=== PATIENT | female | born 1975 | race Caucasian/White ===

== ENCOUNTER → 2016-12-10 | Outpatient (CLI) | payer OTHER ==
[~2016-12-10] MED LIST: ANAPROX DS550 MG PO; BACTRIM DS 8001 TA1 PO; BCP; BUSPIRONE HCL10 MG PO; CLARITIN-D 12 H1 TAB PO; DULCOLAX5 MG; IBU800 MG; METFORMIN500 MG PO; MOTRIN800 MG PO; MYLICON, MYLANT80 MG PO; NORTREL 7/7/71 TAB PO; PERCOCET 325 MG1 TA7 PO; PROZAC10 MG PO; PYRIDIUM200 MG PO; TRAMADOL HCL50 MG PO; ZITHROMAX250 MG PO
[2016-12-10 05:39] LABS: ALBUMIN 3.3 gm/dl (3.1-4.5); ALKALINE PHOSPHATASE 59 U/L (45-117); BILIRUBIN, DIRECT < 0.1 mg/dL (0.0-0.2); BILIRUBIN, TOTAL 0.3 mg/dl (0.2-1.0); BUN 9 mg/dl (7-24); CARBON DIOXIDE 33 mmol/L (21-32); CHLORIDE 103 mmol/L (98-107); CHOLESTEROL 147 mg/dL (<200); EST GLOM FILT AFRICAN AMERICAN > 60 ml/min; FREE T4 0.96 ng/dl (0.76-1.46); GLUCOSE 89 mg/dL (65-99); HDL CHOLESTEROL 69 mg/dl (40-60); LDL CHOLESTEROL 65 mg/dL (9-159); SGOT/AST 8 IU/L (3-35); SGPT/ALT 14 U/L (12-78); SODIUM 141 mmol/L (136-145); TOTAL PROTEIN 6.9 gm/dL (6.4-8.2); TRIGLYCERIDES 66 mg/dl (<150); VLDL CHOLESTEROL 13 mg/dL (6-40)
[2016-12-10 05:55] LABS: BASO % 0.6 % (0.0-1.0); EOS # 0.4 10*3/uL (0.0-0.4); EOS % 5.9 % (1.0-4.0); HEMATOCRIT 41.9 % (37.0-47.0); HEMOGLOBIN 13.3 g/dl (12.0-16.0); LYMPH % 29.7 % (27.0-41.0); MEAN CELL VOLUME 88.6 fl (81.0-99.0); MEAN CORPUSCULAR HGB 28.1 pg (27.0-31.0); MEAN CORPUSCULAR HGB CONC 31.7 g/dl (33.0-37.0); MEAN PLATELET VOLUME 9.8 fl (9.6-12.3); MONO # 0.6 10*3/uL (0.1-1.0); MONO % 8.1 % (3.0-9.0); NEUT # 3.8 10*3/uL (2.3-7.9); NEUT % 55.6 % (47.0-73.0); PLATELET COUNT AUTOMATED 240 10*3/uL (130-400); RED BLOOD COUNT 4.73 10*6/uL (4.10-5.10); RED CELL DISTRI WIDTH 13.2 % (0-14.5); WHITE BLOOD COUNT 6.8 10*3/uL (4.8-10.8)
[2016-12-10 06:41] LABS: HEMOGLOBIN A1c 5.7 % (4.8-5.6)
[2016-12-10 07:15] LABS: VITAMIN D, 25-HYDROXY 16.5 ng/mL (30-100)
== END ==
LOC: LAB 04:21
PROVIDERS: Nurse Practitioner Family
DX: E03.9 Hypothyroidism, unspecified (principal); E55.9 Vitamin D deficiency, unspecified; E04.9 Nontoxic goiter, unspecified; E66.9 Obesity, unspecified; R53.83 Other fatigue; R73.02 Impaired glucose tolerance (oral)

== ENCOUNTER → 2017-08-27 | Outpatient (CLI) | payer OTHER ==
[2017-08-27 07:06] LABS: ALBUMIN 3.3 gm/dl (3.1-4.5); BUN 12 mg/dl (7-24); CHLORIDE 103 mmol/L (98-107); CREATININE 0.87 mg/dL (0.55-1.02); FREE T4 1.03 ng/dl (0.76-1.46); POTASSIUM 4.3 mmol/L (3.5-5.1); SODIUM 139 mmol/L (136-145)
== END | disposition home or self-care (01) ==
LOC: LAB 05:54
PROVIDERS: Internal Medicine
DX: E03.9 Hypothyroidism, unspecified (principal); E28.2 Polycystic ovarian syndrome; E55.9 Vitamin D deficiency, unspecified

== ENCOUNTER → 2017-12-08 | Outpatient (CLI) | payer OTHER ==
[2017-12-08 05:47] LABS: ALKALINE PHOSPHATASE 66 U/L (45-117); BUN 6 mg/dl (7-24); CHLORIDE 105 mmol/L (98-107); CHOLESTEROL 166 mg/dL (<200); CREATININE 0.82 mg/dL (0.55-1.02); HDL CHOLESTEROL 65 mg/dl (40-60); LDL CHOLESTEROL 85 mg/dL (9-159); POTASSIUM 3.8 mmol/L (3.5-5.1); SGOT/AST 7 IU/L (3-35); SGPT/ALT 14 U/L (12-78); SODIUM 144 mmol/L (136-145); TOTAL PROTEIN 6.9 gm/dL (6.4-8.2); TRIGLYCERIDES 78 mg/dl (<150); VLDL CHOLESTEROL 16 mg/dL (6-40)
[2017-12-08 05:59] LABS: BASO % 0.5 % (0.0-1.0); EOS # 0.4 10*3/uL (0.0-0.4); EOS % 4.8 % (1.0-4.0); HEMATOCRIT 40.7 % (37.0-47.0); HEMOGLOBIN 12.9 g/dl (12.0-16.0); LYMPH # 2.6 10*3/uL (1.3-4.4); LYMPH % 30.3 % (27.0-41.0); MEAN CELL VOLUME 90.4 fl (81.0-99.0); MEAN CORPUSCULAR HGB 28.7 pg (27.0-31.0); MEAN CORPUSCULAR HGB CONC 31.7 g/dl (33.0-37.0); MEAN PLATELET VOLUME 9.9 fl (9.6-12.3); MONO # 0.5 10*3/uL (0.1-1.0); MONO % 5.7 % (3.0-9.0); NEUT # 4.9 10*3/uL (2.3-7.9); NEUT % 58.5 % (47.0-73.0); PLATELET COUNT AUTOMATED 243 10*3/uL (130-400); RED CELL DISTRI WIDTH 13.5 % (0-14.5); WHITE BLOOD COUNT 8.4 10*3/uL (4.8-10.8)
== END ==
LOC: LAB 04:33
PROVIDERS: Nurse Practitioner Family
DX: R09.89 Other specified symptoms and signs involving the circulatory and respiratory systems (principal); R50.9 Fever, unspecified; I10 Essential (primary) hypertension; E03.9 Hypothyroidism, unspecified; F31.9 Bipolar disorder, unspecified; E83.51 Hypocalcemia

== ENCOUNTER 2018-03-08 05:44 | Emergency (ER) | payer OTHER ==
[~2018-03-08] VITALS: Ht 162.5 cm; Wt 124.7 kg
[2018-03-08 05:44] VITALS: BP 115/69
[2018-03-08] MEDS ORDERED: KLONOPIN1 M1 PO (05:52)
[2018-03-08] MEDS ORDERED: MAGNESIUM100 M1 PO (05:52)
[2018-03-08] MEDS ORDERED: VITAMIN B COMP1 EAC1 PO (05:52)
[2018-03-08] MEDS ORDERED: CYCLOBENZAPRINE10 MG PO (06:08)
[2018-03-08] MEDS ORDERED: PREDNISONE50 MG PO (06:08)
[2018-03-08] MEDS ORDERED: NAPROSYN500 MG PO (06:08)
== END 2018-03-08 06:29 | disposition home or self-care (01) ==
LOC: ED 05:44
DX: M54.9 Dorsalgia, unspecified (principal); Z88.8 Allergy status to other drugs, medicaments and biological substances; Z79.899 Other long term (current) drug therapy

== ENCOUNTER → 2018-03-20 | Outpatient (CLI) | payer OTHER ==
[~2018-03-20] MED LIST changes: +CYCLOBENZAPRINE10 MG PO; +KLONOPIN1 M1 PO; +MAGNESIUM100 M1 PO; +NAPROSYN500 MG PO; +PREDNISONE50 MG PO; +VITAMIN B COMP1 EAC1 PO
[2018-03-20 06:06] LABS: ALBUMIN 3.3 gm/dl (3.1-4.5); ALKALINE PHOSPHATASE 67 U/L (45-117); BUN 9 mg/dl (7-24); CHLORIDE 99 mmol/L (98-107); CHOLESTEROL 206 mg/dL (<200); HDL CHOLESTEROL 68 mg/dl (40-60); LDL CHOLESTEROL 109 mg/dL (9-159); POTASSIUM 4.6 mmol/L (3.5-5.1); SGOT/AST 11 IU/L (3-35); SGPT/ALT 16 U/L (12-78); SODIUM 137 mmol/L (136-145); TOTAL PROTEIN 7.4 gm/dL (6.4-8.2); TRIGLYCERIDES 143 mg/dl (<150); VLDL CHOLESTEROL 29 mg/dL (6-40)
[2018-03-20 06:10] LABS: BASO # 0.1 10*3/uL (0.0-0.1); BASO % 0.5 % (0.0-1.0); EOS # 0.4 10*3/uL (0.0-0.4); EOS % 4.2 % (1.0-4.0); HEMATOCRIT 44.9 % (37.0-47.0); LYMPH # 2.9 10*3/uL (1.3-4.4); LYMPH % 30.8 % (27.0-41.0); MEAN CELL VOLUME 89.6 fl (81.0-99.0); MEAN CORPUSCULAR HGB 27.9 pg (27.0-31.0); MEAN CORPUSCULAR HGB CONC 31.2 g/dl (33.0-37.0); MEAN PLATELET VOLUME 9.7 fl (9.6-12.3); MONO # 0.7 10*3/uL (0.1-1.0); MONO % 7.4 % (3.0-9.0); NEUT # 5.4 10*3/uL (2.3-7.9); NEUT % 56.9 % (47.0-73.0); PLATELET COUNT AUTOMATED 231 10*3/uL (130-400); RED BLOOD COUNT 5.01 10*6/uL (4.10-5.10); RED CELL DISTRI WIDTH 13.2 % (0-14.5); WHITE BLOOD COUNT 9.4 10*3/uL (4.8-10.8)
== END | disposition home or self-care (01) ==
LOC: MRI 03-16 11:00 → LAB 05:01 → MRI 09:00
PROVIDERS: Nurse Practitioner Family
DX: E03.9 Hypothyroidism, unspecified (principal); I10 Essential (primary) hypertension; R63.5 Abnormal weight gain; M54.9 Dorsalgia, unspecified

== ENCOUNTER → 2018-06-09 | Outpatient (CLI) | payer OTHER ==
[2018-06-09 08:25] LABS: BASO # 0.1 10*3/uL (0.0-0.1); BASO % 0.6 % (0.0-1.0); EOS # 0.4 10*3/uL (0.0-0.4); EOS % 5.1 % (1.0-4.0); HEMATOCRIT 43.3 % (37.0-47.0); HEMOGLOBIN 13.4 g/dl (12.0-16.0); LYMPH # 1.9 10*3/uL (1.3-4.4); LYMPH % 23.6 % (27.0-41.0); MEAN CORPUSCULAR HGB 28.2 pg (27.0-31.0); MEAN CORPUSCULAR HGB CONC 30.9 g/dl (33.0-37.0); MEAN PLATELET VOLUME 9.7 fl (9.6-12.3); MONO # 0.5 10*3/uL (0.1-1.0); MONO % 6.3 % (3.0-9.0); NEUT # 5.2 10*3/uL (2.3-7.9); PLATELET COUNT AUTOMATED 233 10*3/uL (130-400); RED BLOOD COUNT 4.76 10*6/uL (4.10-5.10); RED CELL DISTRI WIDTH 13.2 % (0-14.5); WHITE BLOOD COUNT 8.1 10*3/uL (4.8-10.8)
== END | disposition home or self-care (01) ==
LOC: LAB 07:36
PROVIDERS: Nurse Practitioner Family
DX: R10.11 Right upper quadrant pain (principal); R11.0 Nausea; R11.11 Vomiting without nausea; R73.01 Impaired fasting glucose

== ENCOUNTER → 2018-06-13 | Outpatient (CLI) | payer OTHER | END | disposition home or self-care (01) | LOC: US 09:50 | DX: K76.0 Fatty (change of) liver, not elsewhere classified (principal); R11.0 Nausea ==

== ENCOUNTER 2018-08-07 03:32 | Emergency (ER) | payer OTHER ==
[~2018-08-07] VITALS: Ht 162.5 cm; Wt 119.7 kg
[2018-08-07 03:33] VITALS: BP 138/69
== END 2018-08-07 04:20 | disposition home or self-care (01) ==
LOC: ED 03:32
DX: M25.531 Pain in right wrist (principal); M25.511 Pain in right shoulder; Z88.8 Allergy status to other drugs, medicaments and biological substances; Z79.899 Other long term (current) drug therapy; Z98.51 Tubal ligation status

== ENCOUNTER 2018-12-13 12:40 | Emergency (ER) | payer OTHER ==
[~2018-12-13] VITALS: Ht 162.5 cm; Wt 117.9 kg
[2018-12-13 14:23] VITALS: BP 125/74
[2018-12-13] MEDS ORDERED: ALBUTEROL2.5 MG/0.5 INH (14:39)
[2018-12-13] MEDS ORDERED: PREDNISONE50 MG PO (14:39)
[2018-12-13] MEDS ORDERED: ZITHROMAX250 MG PO (14:39)
== END 2018-12-13 15:05 | disposition home or self-care (01) ==
LOC: ED 12:40
DX: J20.9 Acute bronchitis, unspecified (principal); J45.909 Unspecified asthma, uncomplicated; F17.200 Nicotine dependence, unspecified, uncomplicated; Z88.8 Allergy status to other drugs, medicaments and biological substances; Z79.899 Other long term (current) drug therapy

== ENCOUNTER → 2018-12-19 | Outpatient (CLI) | payer OTHER ==
[~2018-12-19] MED LIST changes: +ALBUTEROL2.5 MG/0.5 INH; +LIDODERM1 EACH T; +ROBAXIN500 M1 PO
== END | disposition home or self-care (01) ==
LOC: RAD 07:37
DX: S40.022A Contusion of left upper arm, initial encounter (principal); S20.222A Contusion of left back wall of thorax, initial encounter; S20.212S Contusion of left front wall of thorax, sequela; J20.9 Acute bronchitis, unspecified; W19.XXXA Unspecified fall, initial encounter; Y93.89 Activity, other specified; Y92.89 Other specified places as the place of occurrence of the external cause; Y99.8 Other external cause status

== ENCOUNTER → 2019-02-13 | Outpatient (CLI) | payer OTHER | END | disposition home or self-care (01) | LOC: RAD 09:47 | DX: L50.9 Urticaria, unspecified (principal); E88.81 Metabolic syndrome and other insulin resistance; J30.9 Allergic rhinitis, unspecified; Z72.0 Tobacco use ==

== ENCOUNTER 2019-04-25 17:36 | Emergency (ER) | payer OTHER ==
[~2019-04-25] VITALS: Ht 162.5 cm; Wt 117.9 kg
[~2019-04-25 17:36] MED LIST changes: -LIDODERM1 EACH T; -ROBAXIN500 M1 PO
[2019-04-25 17:39] VITALS: BP 115/63
[2019-04-25] MEDS ORDERED: ANAPROX DS550 MG PO (17:57)
[2019-04-25] MEDS ORDERED: LIDODERM1 EACH T (17:57)
[2019-04-25] MEDS ORDERED: ROBAXIN500 M1 PO (17:57)
== END 2019-04-25 18:18 | disposition home or self-care (01) ==
LOC: ED 17:36
DX: S29.012A Strain of muscle and tendon of back wall of thorax, initial encounter (principal); Z79.899 Other long term (current) drug therapy; Z88.8 Allergy status to other drugs, medicaments and biological substances; X50.9XXA Other and unspecified overexertion or strenuous movements or postures, initial encounter; Y93.89 Activity, other specified; Y92.89 Other specified places as the place of occurrence of the external cause; Y99.8 Other external cause status

== ENCOUNTER → 2019-07-12 | Outpatient (CLI) | payer OTHER ==
[~2019-07-12] MED LIST changes: +LIDODERM1 EACH T; +ROBAXIN500 M1 PO
== END | disposition home or self-care (01) ==
LOC: RAD 15:32
DX: M25.511 Pain in right shoulder (principal)

== ENCOUNTER → 2019-08-03 | Outpatient (CLI) | payer OTHER ==
[2019-08-03 04:16] LABS: BASO # 0.1 10*3/uL (0.0-0.1); BASO % 0.7 % (0.0-1.0); EOS # 0.4 10*3/uL (0.0-0.4); EOS % 4.2 % (1.0-4.0); HEMATOCRIT 43.5 % (37.0-47.0); HEMOGLOBIN 13.9 g/dl (12.0-16.0); LYMPH # 3.1 10*3/uL (1.3-4.4); LYMPH % 34.6 % (27.0-41.0); MEAN CELL VOLUME 90.2 fl (81.0-99.0); MEAN CORPUSCULAR HGB 28.8 pg (27.0-31.0); MEAN PLATELET VOLUME 9.1 fl (9.6-12.3); MONO # 0.7 10*3/uL (0.1-1.0); MONO % 7.5 % (3.0-9.0); NEUT # 4.8 10*3/uL (2.3-7.9); NEUT % 52.8 % (47.0-73.0); PLATELET COUNT AUTOMATED 237 10*3/uL (130-400); RED BLOOD COUNT 4.82 10*6/uL (4.10-5.10); RED CELL DISTRI WIDTH 13.8 % (0-14.5); WHITE BLOOD COUNT 9.1 10*3/uL (4.8-10.8)
[2019-08-03 04:44] LABS: ALBUMIN 3.4 gm/dl (3.1-4.5); ALKALINE PHOSPHATASE 66 U/L (45-117); BUN 8 mg/dl (7-24); CHLORIDE 106 mmol/L (98-107); CHOLESTEROL 175 mg/dL (<200); CREATININE 0.72 mg/dL (0.55-1.02); HDL CHOLESTEROL 67 mg/dl (40-60); LDL CHOLESTEROL 91 mg/dL (9-159); POTASSIUM 3.9 mmol/L (3.5-5.1); SGPT/ALT 10 U/L (12-78); SODIUM 140 mmol/L (136-145); TOTAL PROTEIN 7.3 gm/dL (6.4-8.2); TRIGLYCERIDES 87 mg/dl (<150); VLDL CHOLESTEROL 17 mg/dL (6-40)
[2019-08-03 04:45] LABS: SGOT/AST < 3 IU/L (3-35)
== END | disposition home or self-care (01) ==
LOC: LAB 03:38
PROVIDERS: Nurse Practitioner Family
DX: L23.9 Allergic contact dermatitis, unspecified cause (principal); E88.81 Metabolic syndrome and other insulin resistance; F17.210 Nicotine dependence, cigarettes, uncomplicated

== ENCOUNTER → 2019-08-27 | Outpatient (CLI) | payer OTHER ==
[2019-08-27 08:33] LABS: ALBUMIN 3.4 gm/dl (3.1-4.5); ALKALINE PHOSPHATASE 66 U/L (45-117); BILIRUBIN, DIRECT < 0.1 mg/dL (0.0-0.2); GAMMA GLUTAMYL TRANSPEPTIDASE 9 U/L (5-55); SGOT/AST 8 IU/L (3-35); SGPT/ALT 10 U/L (12-78); TOTAL PROTEIN 7.2 gm/dL (6.4-8.2)
[2019-08-28 05:05] LABS: HEPATITIS B SURFACE AG Negative (Negative); HEPATITIS C VIRUS ANTIBODY <0.1 s/co (0.0-0.9)
== END | disposition home or self-care (01) ==
LOC: US 07:25
PROVIDERS: Nurse Practitioner Family
DX: K76.0 Fatty (change of) liver, not elsewhere classified (principal); R74.8 Abnormal levels of other serum enzymes

== ENCOUNTER → 2020-07-24 | Outpatient (CLI) | payer OTHER | END | disposition home or self-care (01) | LOC: RAD 09:36 | PROVIDERS: ATTEND Nurse Practitioner Family | DX: R53.83 Other fatigue (principal); R40.0 Somnolence; F17.210 Nicotine dependence, cigarettes, uncomplicated ==

== ENCOUNTER → 2020-09-09 | Outpatient (CLI) | payer OTHER | END | disposition home or self-care (01) | LOC: COVID19 00:18 | PROVIDERS: ATTEND Nurse Practitioner Family | DX: R05 Cough (principal); R09.81 Nasal congestion; J15.9 Unspecified bacterial pneumonia; F17.210 Nicotine dependence, cigarettes, uncomplicated; Z20.828 Contact with and (suspected) exposure to other viral communicable diseases ==

== ENCOUNTER → 2020-10-06 | Outpatient (CLI) | payer OTHER | END | disposition home or self-care (01) | LOC: COVID19 12:17 | PROVIDERS: ATTEND Nurse Practitioner Family | DX: Z20.828 Contact with and (suspected) exposure to other viral communicable diseases (principal) ==

== ENCOUNTER → 2020-10-21 | Outpatient (CLI) | payer OTHER | END | disposition home or self-care (01) | LOC: COVID19 16:02 | PROVIDERS: ATTEND Nurse Practitioner Family | DX: Z20.828 Contact with and (suspected) exposure to other viral communicable diseases (principal) ==

== ENCOUNTER 2021-08-24 15:56 | Emergency (ER) | payer OTHER ==
[~2021-08-24] VITALS: Wt 118.8 kg
[2021-08-24] MEDS ORDERED: MELOXICAM15 MG PO (19:56)
[2021-08-24] MEDS ORDERED: PROZAC40 M1 PO (19:56)
[2021-08-24] MEDS ORDERED: LAMOTRIGINE100 MG PO (19:57)
[2021-08-24] MEDS ORDERED: PROVENTIL HFA6.7 GM INH ×2 (19:57→19:58)
[2021-08-24] MEDS ORDERED: METFORMIN XR500 MG PO (19:58)
[2021-08-24] MEDS ORDERED: FAMOTIDINE40 MG PO (19:58)
[2021-08-24 20:00] VITALS: BP 130/78
[2021-08-24] MEDS ORDERED: IBUPROFEN600 MG PO (22:45)
== END 2021-08-24 23:00 | disposition home or self-care (01) ==
LOC: ED 15:56
DX: S96.912A Strain of unspecified muscle and tendon at ankle and foot level, left foot, initial encounter (principal); Z88.8 Allergy status to other drugs, medicaments and biological substances; Z79.899 Other long term (current) drug therapy; X58.XXXA Exposure to other specified factors, initial encounter; Y93.89 Activity, other specified; Y92.89 Other specified places as the place of occurrence of the external cause; Y99.8 Other external cause status

== ENCOUNTER → 2021-12-11 | Outpatient (CLI) | payer OTHER ==
[~2021-12-11] MED LIST changes: +FAMOTIDINE40 MG PO; +IBUPROFEN600 MG PO; +LAMOTRIGINE100 MG PO; +MELOXICAM15 MG PO; +METFORMIN XR500 MG PO; +PROVENTIL HFA6.7 GM INH; +PROZAC40 M1 PO
== END | disposition home or self-care (01) ==
LOC: RAD 09:00
PROVIDERS: ATTEND Nurse Practitioner Family
DX: R05.9 Cough, unspecified (principal); R06.2 Wheezing

== ENCOUNTER → 2022-08-03 | Outpatient (CLI) | payer OTHER ==
[2022-08-03 09:35] LABS: BASO # 0.1 10*3/uL (0.0-0.1); BASO % 0.6 % (0.0-1.0); EOS # 0.3 10*3/uL (0.0-0.4); HEMATOCRIT 43.6 % (37.0-47.0); LYMPH # 1.7 10*3/uL (1.3-4.4); MEAN CELL VOLUME 85.3 fl (81.0-99.0); MEAN CORPUSCULAR HGB 26.8 pg (27.0-31.0); MEAN CORPUSCULAR HGB CONC 31.4 g/dl (33.0-37.0); MONO # 0.6 10*3/uL (0.1-1.0); MONO % 6.8 % (3.0-9.0); NEUT # 5.9 10*3/uL (2.3-7.9); NEUT % 69.2 % (47.0-73.0); PLATELET COUNT AUTOMATED 239 10*3/uL (130-400); RED BLOOD COUNT 5.11 10*6/uL (4.10-5.10); RED CELL DISTRI WIDTH 14.6 % (0-14.5); WHITE BLOOD COUNT 8.6 10*3/uL (4.8-10.8)
[2022-08-03 09:53] LABS: ALKALINE PHOSPHATASE 75 U/L (45-117); BUN 10 mg/dl (7-24); CHLORIDE 105 mmol/L (98-107); CHOLESTEROL 186 mg/dL (<200); CREATININE 0.84 mg/dL (0.55-1.02); LDL CHOLESTEROL 93 mg/dL (9-159); POTASSIUM 4.7 mmol/L (3.5-5.1); SGOT/AST 10 IU/L (3-35); SGPT/ALT 13 U/L (12-78); SODIUM 142 mmol/L (136-145); TOTAL PROTEIN 7.6 gm/dL (6.4-8.2); TRIGLYCERIDES 100 mg/dl (<150)
== END ==
LOC: LAB 09:14
PROVIDERS: ATTEND Nurse Practitioner Family
DX: Z12.31 Encounter for screening mammogram for malignant neoplasm of breast (principal); E11.9 Type 2 diabetes mellitus without complications; M77.10 Lateral epicondylitis, unspecified elbow; R10.13 Epigastric pain; J30.9 Allergic rhinitis, unspecified; E87.5 Hyperkalemia; Z23 Encounter for immunization

== ENCOUNTER → 2022-09-17 | Outpatient (CLI) | payer OTHER | END | disposition home or self-care (01) | LOC: ORTHO 02:20 | PROVIDERS: ATTEND Orthopaedic Surgery | DX: M25.531 Pain in right wrist (principal); M25.532 Pain in left wrist ==

== ENCOUNTER → 2022-10-19 | Day surgery (SDC) | payer OTHER ==
[~2022-10-19] VITALS: Ht 162.5 cm; Wt 124.7 kg
[~2022-10-19] MED LIST changes: +ATIVAN1 MG PO; +CETIRIZINE HYDR10 MG PO; +PROTONIX40 MG PO
[2022-10-19 07:05] LABS: BUN 10 mg/dl (7-24); CHLORIDE 103 mmol/L (98-107); CREATININE 0.78 mg/dL (0.55-1.02); POTASSIUM 4.6 mmol/L (3.5-5.1); SODIUM 139 mmol/L (136-145)
[2022-10-19 07:07] VITALS: BP 111/79
[2022-10-19 08:05] VITALS: BP 110/54
[2022-10-19 08:20] VITALS: BP 121/68
[2022-10-19 08:35] VITALS: BP 120/70
[2022-10-19 09:00] VITALS: BP 110/54
== END | disposition home or self-care (01) ==
LOC: SDC 10-15 12:30
PROVIDERS: ATTEND Orthopaedic Surgery
DX: G56.03 Carpal tunnel syndrome, bilateral upper limbs (principal); F41.9 Anxiety disorder, unspecified; F31.9 Bipolar disorder, unspecified; K21.9 Gastro-esophageal reflux disease without esophagitis; J45.909 Unspecified asthma, uncomplicated

== ENCOUNTER → 2022-11-30 | Outpatient (CLI) | payer OTHER ==
[~2022-11-30] MED LIST changes: +MELATONIN1 MG PO
[2022-11-30 08:29] LABS: BASO # 0.1 10*3/uL (0.0-0.1); BASO % 0.5 % (0.0-1.0); EOS # 0.3 10*3/uL (0.0-0.4); EOS % 3.2 % (1.0-4.0); HEMATOCRIT 44.1 % (37.0-47.0); LYMPH # 2.4 10*3/uL (1.3-4.4); LYMPH % 22.4 % (27.0-41.0); MEAN CELL VOLUME 83.8 fl (81.0-99.0); MEAN CORPUSCULAR HGB 25.5 pg (27.0-31.0); MEAN CORPUSCULAR HGB CONC 30.4 g/dl (33.0-37.0); MONO # 0.8 10*3/uL (0.1-1.0); MONO % 7.7 % (3.0-9.0); NEUT % 65.8 % (47.0-73.0); PLATELET COUNT AUTOMATED 288 10*3/uL (130-400); RED BLOOD COUNT 5.26 10*6/uL (4.10-5.10); RED CELL DISTRI WIDTH 14.9 % (0-14.5); WHITE BLOOD COUNT 10.6 10*3/uL (4.8-10.8)
[2022-11-30 08:59] LABS: ALKALINE PHOSPHATASE 81 U/L (46-116); BUN 13 mg/dl (9-23); CHLORIDE 100 mmol/L (98-107); CHOLESTEROL 153 mg/dL (<200); LDL CHOLESTEROL 84 mg/dL (9-159); POTASSIUM 4.8 mmol/L (3.4-5.1); SGPT/ALT 8 U/L (10-49); TOTAL PROTEIN 7.8 gm/dL (6.0-8.0); TRIGLYCERIDES 77 mg/dl (<150)
== END | disposition home or self-care (01) ==
LOC: LAB 08:14
PROVIDERS: ATTEND Nurse Practitioner Family
DX: Z23 Encounter for immunization (principal); S05.91XA Unspecified injury of right eye and orbit, initial encounter; E88.81 Metabolic syndrome and other insulin resistance; R94.131 Abnormal electromyogram [EMG]; M25.531 Pain in right wrist; M25.532 Pain in left wrist; X58.XXXA Exposure to other specified factors, initial encounter; Y93.89 Activity, other specified; Y92.89 Other specified places as the place of occurrence of the external cause; Y99.8 Other external cause status

== ENCOUNTER → 2022-12-10 | Outpatient (CLI) | payer OTHER | END | disposition home or self-care (01) | LOC: RAD 10:09 | PROVIDERS: ATTEND Nurse Practitioner Family | DX: J02.9 Acute pharyngitis, unspecified (principal); R05.9 Cough, unspecified; G56.93 Unspecified mononeuropathy of bilateral upper limbs; E11.9 Type 2 diabetes mellitus without complications; E88.81 Metabolic syndrome and other insulin resistance; Z79.899 Other long term (current) drug therapy ==

== ENCOUNTER 2023-02-21 09:46 | Emergency (ER) | payer OTHER ==
[~2023-02-21] VITALS: Ht 162.5 cm; Wt 127.0 kg
[2023-02-21 09:55] VITALS: BP 145/87
[2023-02-21] MEDS ORDERED: VIBRA-TAB100 MG PO (10:19)
[2023-02-21] MEDS ORDERED: Ondansetron4 MG PO (10:19)
== END 2023-02-21 10:32 | disposition home or self-care (01) ==
LOC: ED 09:46
DX: R11.2 Nausea with vomiting, unspecified (principal); J32.0 Chronic maxillary sinusitis; F41.9 Anxiety disorder, unspecified; F31.9 Bipolar disorder, unspecified; J45.909 Unspecified asthma, uncomplicated; K21.9 Gastro-esophageal reflux disease without esophagitis; Z88.8 Allergy status to other drugs, medicaments and biological substances; Z98.51 Tubal ligation status; Z90.710 Acquired absence of both cervix and uterus; Z98.890 Other specified postprocedural states

== ENCOUNTER → 2023-05-03 | Outpatient (CLI) | payer OTHER ==
[~2023-05-03] MED LIST changes: +Ondansetron4 MG PO; +VIBRA-TAB100 MG PO
[2023-05-03 08:46] LABS: BASO # 0.1 10*3/uL (0.0-0.1); BASO % 0.7 % (0.0-1.0); EOS # 0.2 10*3/uL (0.0-0.4); EOS % 2.5 % (1.0-4.0); HEMATOCRIT 42.8 % (37.0-47.0); MEAN CELL VOLUME 81.1 fl (81.0-99.0); MEAN CORPUSCULAR HGB 25.4 pg (27.0-31.0); MEAN CORPUSCULAR HGB CONC 31.3 g/dl (33.0-37.0); MEAN PLATELET VOLUME 9.2 fl (9.6-12.3); MONO # 0.6 10*3/uL (0.1-1.0); MONO % 7.4 % (3.0-9.0); NEUT # 5.4 10*3/uL (2.3-7.9); NEUT % 65.2 % (47.0-73.0); PLATELET COUNT AUTOMATED 265 10*3/uL (130-400); RED BLOOD COUNT 5.28 10*6/uL (4.10-5.10); RED CELL DISTRI WIDTH 15.3 % (0-14.5); WHITE BLOOD COUNT 8.3 10*3/uL (4.8-10.8)
[2023-05-03 09:38] LABS: ALKALINE PHOSPHATASE 80 U/L (46-116); BUN 9 mg/dl (9-23); CHLORIDE 103 mmol/L (98-107); CHOLESTEROL 168 mg/dL (<200); LDL CHOLESTEROL 86 mg/dL (9-159); POTASSIUM 4.3 mmol/L (3.4-5.1); SGPT/ALT 7 U/L (10-49); THYROID STIM HORMONE (HS) 1.624 uIU/ml (0.550-4.780); TOTAL PROTEIN 7.8 gm/dL (6.0-8.0); TRIGLYCERIDES 93 mg/dl (<150)
== END | disposition home or self-care (01) ==
LOC: LAB 08:05
PROVIDERS: ATTEND Nurse Practitioner Family
DX: E11.9 Type 2 diabetes mellitus without complications (principal); E88.81 Metabolic syndrome and other insulin resistance; R20.0 Anesthesia of skin; R94.131 Abnormal electromyogram [EMG]; M25.531 Pain in right wrist; Z79.899 Other long term (current) drug therapy

== ENCOUNTER → 2023-09-05 | Outpatient (CLI) | payer OTHER ==
[2023-09-05 08:16] LABS: BASO # 0.1 10*3/uL (0.0-0.1); BASO % 0.8 % (0.0-1.0); EOS # 0.3 10*3/uL (0.0-0.4); EOS % 3.8 % (1.0-4.0); HEMATOCRIT 40.3 % (37.0-47.0); LYMPH # 1.8 10*3/uL (1.3-4.4); MEAN CELL VOLUME 83.1 fl (81.0-99.0); MEAN CORPUSCULAR HGB 25.4 pg (27.0-31.0); MEAN CORPUSCULAR HGB CONC 30.5 g/dl (33.0-37.0); MEAN PLATELET VOLUME 9.1 fl (9.6-12.3); MONO # 0.5 10*3/uL (0.1-1.0); MONO % 6.8 % (3.0-9.0); NEUT % 65.2 % (47.0-73.0); PLATELET COUNT AUTOMATED 238 10*3/uL (130-400); RED BLOOD COUNT 4.85 10*6/uL (4.10-5.10); RED CELL DISTRI WIDTH 15.1 % (0-14.5); WHITE BLOOD COUNT 7.7 10*3/uL (4.8-10.8)
[2023-09-05 08:31] LABS: URINE CREATININE RANDOM 67.27 mg/dL
[2023-09-05 09:54] LABS: ALKALINE PHOSPHATASE 81 U/L (46-116); BUN 7 mg/dl (9-23); CHLORIDE 102 mmol/L (98-107); CHOLESTEROL 182 mg/dL (<200); LDL CHOLESTEROL 99 mg/dL (9-159); POTASSIUM 4.3 mmol/L (3.4-5.1); TOTAL PROTEIN 7.5 gm/dL (6.0-8.0); TRIGLYCERIDES 69 mg/dl (<150)
[2023-09-05 09:57] LABS: SGPT/ALT < 7 U/L (10-49)
== END | disposition home or self-care (01) ==
LOC: LAB 07:57
PROVIDERS: ATTEND Nurse Practitioner Family
DX: E11.42 Type 2 diabetes mellitus with diabetic polyneuropathy (principal)

== ENCOUNTER → 2024-02-06 | Outpatient (CLI) | payer OTHER ==
[2024-02-06 08:50] LABS: BASO # 0.1 10*3/uL (0.0-0.1); BASO % 0.6 % (0.0-1.0); EOS # 0.3 10*3/uL (0.0-0.4); EOS % 3.4 % (1.0-4.0); HEMATOCRIT 42.9 % (37.0-47.0); LYMPH # 2.3 10*3/uL (1.3-4.4); LYMPH % 28.9 % (27.0-41.0); MEAN CELL VOLUME 84.6 fl (81.0-99.0); MEAN CORPUSCULAR HGB 25.2 pg (27.0-31.0); MEAN CORPUSCULAR HGB CONC 29.8 g/dl (33.0-37.0); MEAN PLATELET VOLUME 8.9 fl (9.6-12.3); MONO # 0.6 10*3/uL (0.1-1.0); MONO % 7.7 % (3.0-9.0); NEUT # 4.7 10*3/uL (2.3-7.9); NEUT % 59.2 % (47.0-73.0); PLATELET COUNT AUTOMATED 241 10*3/uL (130-400); RED BLOOD COUNT 5.07 10*6/uL (4.10-5.10); RED CELL DISTRI WIDTH 14.6 % (0-14.5)
[2024-02-06 09:12] LABS: ALKALINE PHOSPHATASE 82 U/L (46-116); BUN 8 mg/dl (9-23); CHLORIDE 103 mmol/L (98-107); CHOLESTEROL 172 mg/dL (<200); LDL CHOLESTEROL 91 mg/dL (9-159); POTASSIUM 4.4 mmol/L (3.4-5.1); SGPT/ALT 10 U/L (5-49); TOTAL PROTEIN 7.3 gm/dL (6.0-8.0); TRIGLYCERIDES 80 mg/dl (<150)
== END | disposition home or self-care (01) ==
LOC: LAB 08:34
PROVIDERS: ATTEND Nurse Practitioner Family
DX: E78.5 Hyperlipidemia, unspecified (principal); R73.01 Impaired fasting glucose; J45.20 Mild intermittent asthma, uncomplicated; J30.9 Allergic rhinitis, unspecified; E66.09 Other obesity due to excess calories

== ENCOUNTER 2024-08-18 17:47 | Emergency (ER) | payer OTHER ==
[~2024-08-18] VITALS: Ht 162.5 cm; Wt 122.5 kg
[2024-08-18 17:54] VITALS: BP 130/64
[2024-08-18] MEDS ORDERED: Acetaminophen/Oxycodone 5 MG/325 MG TABLET PO ONE (18:00)
== END 2024-08-18 18:30 | disposition home or self-care (01) ==
LOC: ED 17:47
DX: S93.401A Sprain of unspecified ligament of right ankle, initial encounter (principal); F41.9 Anxiety disorder, unspecified; J45.909 Unspecified asthma, uncomplicated; F31.9 Bipolar disorder, unspecified; K21.9 Gastro-esophageal reflux disease without esophagitis; Z88.8 Allergy status to other drugs, medicaments and biological substances; Z90.710 Acquired absence of both cervix and uterus; Z98.51 Tubal ligation status; Z98.890 Other specified postprocedural states; W10.8XXA Fall (on) (from) other stairs and steps, initial encounter; Y93.89 Activity, other specified; Y92.89 Other specified places as the place of occurrence of the external cause; Y99.8 Other external cause status

== ENCOUNTER → 2024-09-29 | Outpatient (CLI) | payer OTHER ==
[2024-09-29 08:07] LABS: HEMATOCRIT 41.1 % (37.0-47.0); MEAN CELL VOLUME 83.7 fl (81.0-99.0); MEAN CORPUSCULAR HGB 26.3 pg (27.0-31.0); MEAN CORPUSCULAR HGB CONC 31.4 g/dl (33.0-37.0); MEAN PLATELET VOLUME 8.9 fl (9.6-12.3); RED BLOOD COUNT 4.91 10*6/uL (4.10-5.10); RED CELL DISTRI WIDTH 14.6 % (0-14.5); WHITE BLOOD COUNT 8.4 10*3/uL (4.8-10.8)
[2024-09-29 08:30] LABS: ALKALINE PHOSPHATASE 83 U/L (46-116); BUN 14 mg/dl (9-23); CHLORIDE 107 mmol/L (98-107); CHOLESTEROL 178 mg/dL (<200); CPK 44 U/L (34-171); FREE T4 1.07 ng/dl (0.89-1.76); LDL CHOLESTEROL 94 mg/dL (9-159); POTASSIUM 4.5 mmol/L (3.4-5.1); SGPT/ALT 18 U/L (5-49); TOTAL PROTEIN 7.6 gm/dL (6.0-8.0); TRIGLYCERIDES 126 mg/dl (<150)
[2024-09-29 09:04] LABS: VITAMIN D, 25-HYDROXY 33.1 ng/mL (30-100)
== END | disposition home or self-care (01) ==
LOC: LAB 07:40
PROVIDERS: ATTEND Family Medicine
DX: I10 Essential (primary) hypertension (principal); E11.9 Type 2 diabetes mellitus without complications; E78.00 Pure hypercholesterolemia, unspecified; E55.9 Vitamin D deficiency, unspecified; R53.83 Other fatigue

== ENCOUNTER → 2024-10-30 | Outpatient (CLI) | payer OTHER | END | disposition home or self-care (01) | LOC: RAD 13:29 | PROVIDERS: ATTEND Family Medicine | DX: J98.11 Atelectasis (principal); R06.02 Shortness of breath; R05.9 Cough, unspecified ==

== ENCOUNTER → 2025-02-14 | Outpatient (CLI) | payer OTHER ==
[2025-02-14 07:48] LABS: HEMATOCRIT 41.7 % (37.0-47.0); MEAN CELL VOLUME 85.6 fl (81.0-99.0); MEAN CORPUSCULAR HGB 25.7 pg (27.0-31.0); MEAN PLATELET VOLUME 9.3 fl (9.6-12.3); RED BLOOD COUNT 4.87 10*6/uL (4.10-5.10); RED CELL DISTRI WIDTH 15.1 % (0-14.5); WHITE BLOOD COUNT 9.5 10*3/uL (4.8-10.8)
[2025-02-14 08:18] LABS: VITAMIN D, 25-HYDROXY 27.3 ng/mL (30-100)
[2025-02-14 08:20] LABS: ALKALINE PHOSPHATASE 81 U/L (46-116); BUN 14 mg/dl (9-23); CHLORIDE 103 mmol/L (98-107); CHOLESTEROL 205 mg/dL (<200); FREE T4 1.09 ng/dl (0.89-1.76); LDL CHOLESTEROL 112 mg/dL (9-159); POTASSIUM 4.7 mmol/L (3.4-5.1); TOTAL PROTEIN 7.5 gm/dL (6.0-8.0); TRIGLYCERIDES 103 mg/dl (<150)
[2025-02-14 08:25] LABS: SGPT/ALT < 7 U/L (5-49)
== END | disposition home or self-care (01) ==
LOC: LAB 07:27
PROVIDERS: ATTEND Family Medicine
DX: E55.9 Vitamin D deficiency, unspecified (principal); E78.00 Pure hypercholesterolemia, unspecified; E11.9 Type 2 diabetes mellitus without complications; Z79.899 Other long term (current) drug therapy

== ENCOUNTER → 2025-08-22 | Outpatient (CLI) | payer OTHER ==
[2025-08-22 09:54] LABS: BILIRUBIN Negative (Negative); BLOOD Negative (Negative); CLARITY Clear (Clear); COLOR Yellow (Yellow); KETONE Negative (Negative); LEUKO ESTERASE Negative (Negative); NITRITE Negative (Negative); PH 5.0 (4.5-8.0); SPECIFIC GRAVITY 1.020 (1.001-1.030); UROBILINOGEN 1.0 E.U./dl (0.0-1.0)
[2025-08-22 09:55] LABS: BASO # 0.0 10*3/uL (0.0-0.1); BASO % 0.5 % (0.0-1.0); EOS # 0.3 10*3/uL (0.0-0.4); EOS % 3.3 % (1.0-4.0); MEAN CELL VOLUME 85.6 fl (81.0-99.0); MEAN CORPUSCULAR HGB 26.2 pg (27.0-31.0); MEAN PLATELET VOLUME 9.2 fl (9.6-12.3); MONO # 0.5 10*3/uL (0.1-1.0); MONO % 6.1 % (3.0-9.0); NEUT # 5.9 10*3/uL (2.3-7.9); NEUT % 67.4 % (47.0-73.0); NUCLEATED RED BLOOD CELL 0.0 % (0.0-0.0); NUCLEATED RED BLOOD CELL 0.0 10*3/uL (0.0-0.0); PLATELET COUNT AUTOMATED 244 10*3/uL (130-400); RED CELL DISTRI WIDTH 14.2 % (0-14.5); RETICULOCYTE % 1.31 % (0.50-2.50)
[2025-08-22 10:17] LABS: EPITHELIAL CELLS 21-30; WBC 0-2 wbc/hpf (0-5)
[2025-08-22 10:20] LABS: BUN 11 mg/dl (9-23); GAMMA GLUTAMYL TRANSFERASE 36 U/L (0-38); LDL CHOLESTEROL 89 mg/dL (9-159); SGPT/ALT 12 U/L (5-49); T3 UPTAKE 26.2 % (22.4-36.7); THYROXINE (T4) TOTAL 6.2 ug/dl (4.5-10.9)
[2025-08-22 11:04] LABS: VITAMIN D, 25-HYDROXY 30.5 ng/mL (30-100)
[2025-08-24 09:07] LABS: ANTI-DSDNA ANTIBODIES 1 IU/mL (0-9)
== END | disposition home or self-care (01) ==
LOC: LAB 09:19
PROVIDERS: ATTEND Family Medicine
DX: R79.89 Other specified abnormal findings of blood chemistry (principal); E78.5 Hyperlipidemia, unspecified; R53.83 Other fatigue; E55.9 Vitamin D deficiency, unspecified